=== PATIENT | female | born 1980 | race Caucasian/White ===

== ENCOUNTER 2017-01-23 15:13 | Outpatient (CLI) | payer BC ==
[~2017-01-23] VITALS: Ht 167.6 cm; Wt 61.5 kg
[~2017-01-23 15:13] MED LIST: ACHYD1T PO; BIRTH CONTROL PILL PO; BSP5T PO; CETI10CA PO; CHOL10003 PO; CLC500CT PO; DCS100C PO; HYDR1TAB PO; HYDR25CA5 PO; IBP800T PO; METR500T PO; MULT-974 PO; NITR100C PO; OMEP20CA12 PO; OMEP20CA6 PO; ONDA8TAB6 PO; PANT20TA2 PO; PREN1TAB39 PO; PROC25SU2 PR; PROLSEC; PROM25SU10 RC; SERT100T8 PO; SERT50TA PO; [UNRECOGNIZED DRUG - OTHER] PO
[2017-01-23] MEDS ORDERED: SERT50TA9 PO ×2 (15:48)
[2017-01-23] MEDS ORDERED: CHOL20002 PO ×2 (15:48)
[2017-01-23] MEDS ORDERED: MULT-35 PO ×2 (15:48)
[2017-01-23] MEDS ORDERED: L.AC1CAP6 PO ×2 (15:48)
[2017-01-23] MEDS ORDERED: CETI10TA17 PO ×2 (15:48)
[2017-01-24] MEDS ORDERED: HYDR-3816 PO ×2 (12:49)
== END 2017-01-23 16:01 ==
LOC: PREOP 15:13
PROVIDERS: ATTEND Surgery
DX: Z01.818 Encounter for other preprocedural examination (principal); C50.919 Malignant neoplasm of unspecified site of unspecified female breast

== ENCOUNTER 2017-01-24 08:56 | Day surgery (SDC) | payer BC, OTHER ==
--- NOTE | 2017-01-23 22:26 | HISTORY AND PHYSICAL ---
DATE OF SERVICE: ATTENDING/PRIMARY CARE PHYSICIAN: Justine Simmons DO HISTORY OF PRESENT ILLNESS: The patient is a 36-year-old female who we have seen before in the past. We had seen her for recurrent gastroesophageal reflux disease in 2013. She did undergo an EGD on 11/20/2013, which showed a reflux esophagitis class B, very small hiatal hernia, mild gastritis which was treated medically. All biopsies were negative for H. pylori as well as negative for Chappell's esophagus. She had also reported a history of multicentric DCIS of the right breast and underwent bilateral sentinel node biopsies as well as bilateral mastectomy and reconstruction in 2011 and 2012. She has been following her team of physicians at [facility] and she reports noticing a palpable lesion along the medial aspect of the right breast which was very small and approximately the size of a pea. An ultrasound was performed in 06/2016. The lesion persisted and a biopsy was performed in 10/2016, which did show component of invasive ductal carcinoma. She then underwent workup which included lab work as well as a CT scan of the head, neck, abdomen and pelvis, which were normal. She then underwent a wide excision of the lesion, lumpectomy as well as sentinel node x6 to the right axilla, which were all negative for malignancy. She has been seen by her oncologist with the recommendation to proceed with chemotherapy with Taxol and cyclophosphamide for 12 weeks as well as 10 years of antiestrogen therapy with tamoxifen. She will need a Groshong implantable catheter. 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 BRCA negative. Anxiety, gastroesophageal reflux disease. PAST SURGICAL HISTORY: Tonsillectomy in 1997, right ganglion cyst excision in 1998 and 2001, bilateral mastectomy in 2011, breast reconstruction in 2012, right breast lumpectomy and sentinel biopsy in 11/2016. ALLERGIES: DEMEROL, LATEX, COMPAZINE. MEDICATIONS: Zoloft 50 mg daily, omeprazole 20 mg daily, Loestrin daily, Claritin daily. SOCIAL HISTORY: Negative smoke. Rare alcohol. FAMILY HISTORY: Paternal grandmother breast cancer, father esophageal cancer. Paternal grandfather myocardial infarction at age 55. VITAL SIGNS: Blood pressure 100/60, current weight 138.1 pounds, 5 feet 6 inches. REVIEW OF SYSTEMS: Well-nourished female, currently in no acute distress. She is not experiencing any shortness of breath or difficulty breathing. No chest pain, palpitations, diaphoresis. No nausea, vomiting, no diarrhea, constipation. No fever, chills. No recent inadvertent weight loss. All other review of systems negative. PHYSICAL EXAMINATION: CHEST: Clear. Good breath sounds bilaterally. HEART: Regular, no murmurs. EXTREMITIES: No lower extremity edema. Negative Homans' sign. HEENT: No scleral icterus. NECK: No cervical lymphadenopathy. ABDOMEN: Soft, nontender, nondistended. SKIN: Warm and dry. 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 She was found to have a lesion of the right breast, which was biopsied and consistent with an invasive ductal breast cancer. She is now status post wide lumpectomy and sentinel node biopsy x6 in the right axilla, which were all negative. She has been seen by her oncologist for the recommendation to proceed with a total of 12 weeks of chemotherapy at 3-week intervals with Taxol and cyclophosphamide and will need Groshong implantable catheter, which we will proceed with. Job ID: [id number] DocumentID: [id number] Dictated Date: 01/23/2017 16:27:13 Traffic Operator Date: 01/23/2017 18:45:11 Dictated By: FAIZA LOW MD
[~2017-01-24] VITALS: Ht 167.6 cm; Wt 61.5 kg
[~2017-01-24 08:56] MED LIST changes: +CETI10TA17 PO; +CHOL20002 PO; +L.AC1CAP6 PO; +MULT-35 PO; +SERT50TA9 PO
[2017-01-24] MEDS ORDERED: ceFAZolin 1 GM/NS 50 ML IVPB IV ONE ×2 (09:30)
[2017-01-24 09:47] VITALS: BP 148/83
--- NOTE | 2017-01-24 10:12 | Progress Note-Pre Operative ---
Pre-Operative Progress Note H&P Reviewed The H&P was reviewed, patient examined and no changes noted. Date Seen by Provider: Jan 24, 2017 Time Seen by Provider: 10:00 Date H&P Reviewed: Jan 24, 2017 Time H&P Reviewed: 10:00 Pre-Operative Diagnosis: right breast cancer FAIZA LOW MD Jan 24, 2017 10:12 am
[2017-01-24] MEDS ORDERED: NS (IVPB) 50 ML ONE (10:25)
[2017-01-24] MEDS ORDERED: ceFAZolin 1,000 MG (ANCEF) VIAL ONE (10:25)
[2017-01-24] MEDS ORDERED: MIDAZOLAM 10 MG/2 ML (VERSED) VIAL ONE (10:27)
[2017-01-24] MEDS ORDERED: ONDANSETRON 4 MG/2 ML (SDV) Z0FRAN ONE (10:27)
[2017-01-24] MEDS ORDERED: fentaNYL INJECTION 100 MCG/2 ML AMP ONE (10:28)
[2017-01-24] MEDS ORDERED: LACTATED RINGERS 1,000 ML IV PRN (10:33)
[2017-01-24] MEDS ORDERED: BUP/EPI 0.5% 1:200,000 (MARCAINE) 10ML VIAL IJ ONE (10:33)
[2017-01-24] MEDS ORDERED: 0.9% SODIUM CHLORIDE PF INJ 20 ML VIAL ONE (10:34)
[2017-01-24] MEDS ORDERED: HEParin (CENTRAL IV FLUSH) 500 UNIT/5 ML SYR ONE (10:34)
[2017-01-24] MEDS ORDERED: FAMOTIDINE 20MG/2ML IV (PEPCID) IV ONE (10:45)
[2017-01-24] MEDS ORDERED: LIDOCAINE/EPI 1%-1:200,000 (XYLOCAINE) 10 ML VIAL ONE (10:47)
[2017-01-24] MEDS ORDERED: proPOfol 200 MG/20 ML (DIPRIVAN) VIAL IV ONE (11:57)
[2017-01-24] MEDS ORDERED: ONDANSETRON 4 MG/2 ML (SDV) Z0FRAN IVP PRN ×2 (12:30→12:45)
[2017-01-24] MEDS ORDERED: morphine INJ 10 MG/ML 1ML (SYR OR VIAL) IVP PRN ×2 (12:30→12:45)
[2017-01-24] MEDS ORDERED: PROPOFOL INJECTION 50 ML IV ONE (12:33)
--- NOTE | 2017-01-24 12:44 | Progress Note-Post Operative ---
Post-Operative Progess Note Surgeon (s)/Senior [employer] Dba (s) Surgeon FAIZA LOW MD Senior [employer] Dba: ramin kimble [employer] Pre-Operative Diagnosis right breast cancer Post-Operative Diagnosis same Procedure & Operative Findings Date of Procedure 01/24/17 Procedure Performed/Findings left subclavian groshong implantable catheter placement under flouroscopy. Anesthesia Type MAC with local Estimated Blood Loss Estimated blood loss (mL): minimal Specimens/Packing Specimens Removed none FAIZA LOW MD Jan 24, 2017 12:44 pm
[2017-01-24] MEDS ORDERED: HYDROcodone/APAP 5 MG/325 MG (LORTAB) TAB PO NR (12:45)
[2017-01-24] MEDS ORDERED: ACETAMINOPHEN 325 MG TABLET/CAPLET (TYLENOL) PO PRN (12:45)
[2017-01-24] MEDS ORDERED: HYDR-3816 PO ×2 (12:49)
--- NOTE | 2017-01-24 12:50 | Discharge Inst-Surgical ---
D/C Lap Instructions-DEVANTE New, Converted, or Re-Newed RX: RX on Chart Follow Up PRN Activity as tolerated Regular Diet Symptoms to Report: Fever over 101 degree F, Nausea/Vomiting Infection Signs and Symptoms to report: Increased redness, Foul odor of wound, Increased drainage Bathing instructions: May shower Operative Area Clean/Dry; Keep incision clean/dry If any problems/questions: Contact your physician or go to Emergency Room FAIZA LOW MD Jan 24, 2017 12:50 pm
[2017-01-24 13:25] VITALS: BP 143/95
--- NOTE | 2017-01-24 13:42 | Diagnostic Imaging Report ---
Portable upright radiograph of the chest. INDICATION: Port placement. FINDINGS: Left subclavian port is placed with the tip at the distal SVC level. The lungs appear clear. The heart size is normal. No effusion or pneumothorax. The mediastinum and gibson appear unremarkable. Bilateral surgical clips in the breasts are seen. IMPRESSION: Left subclavian port is placed with the tip at the distal SVC level. Dictated by: Dictated on workstation # [id number]
[2017-01-24 13:55] VITALS: BP 141/96
[2017-01-24 14:15] VITALS: BP 141/96
--- NOTE | 2017-01-24 16:25 | OPERATIVE REPORT ---
DATE OF SERVICE: 01/24/2017 ATTENDING PRIMARY PHYSICIAN: Dr. Justine Simmons. PREOPERATIVE DIAGNOSIS: Right breast cancer. POSTOPERATIVE DIAGNOSIS: Right breast cancer. PROCEDURE: Placement of left subclavian Groshong implantable catheter under fluoroscopy. SURGEON: Dr. Low. ANESTHESIA: Monitored anesthesia care with local. ESTIMATED BLOOD LOSS: Minimal. FINDINGS: Catheter tip at superior vena cava - right atrial junction. DISPOSITION: The patient tolerated the procedure well. The patient is a 36-year-old female who we have seen before in the past. She has had a history of gastroesophageal reflux disease since 2013. She underwent an EGD on 11/14/2013 which showed a reflux esophagitis class B, small hiatal hernia as well as mild gastritis treated medically. Biopsies were negative for H. pylori as well as negative for Chappell's esophagus. She reported a history of multicentric DCIS of the right breast and underwent bilateral sentinel node biopsies as well as bilateral mastectomy and reconstruction in 2011 and 2012. She has been following her team of physicians at [facility] and she reports noticing a palpable lesion along the medial aspect of the right breast, which is very small and approximately the size of a pea. An ultrasound was performed on 07/11/2016. The lesion persisted and a biopsy was performed 11/11/2016, which did show component of invasive ductal carcinoma. She then underwent workup, which included lab work as well as a CT scan of the head, neck, abdomen and pelvis which were normal. She underwent wide excision of the lesion lumpectomy as well as sentinel node x6 to the right axilla, which were all negative for malignancy. She was seen by her oncologist for the recommendation to proceed with chemotherapy with Taxol and cyclophosphamide for 12 weeks as well as antiestrogen therapy for 10 years with tamoxifen. She will need Groshong implantable catheter. DESCRIPTION OF PROCEDURE: The patient was brought to the operating room, laid supine on the table. After adequate IV pain and sedative medications and monitoring anesthesia care, the chest and neck were prepped and draped in standard surgical fashion. 1% lidocaine with epinephrine was then used to anesthetize the overlying skin in the left subclavian region. The left subclavian vein was then cannulated with drawing of venous blood. Guidewire was then inserted under fluoroscopy. The cannulating needle removed and a skin incision made using a 15 blade. The dilator and sheath were then placed and the guidewire and dilator were removed. The Groshong implantable catheter was placed until the catheter tip that was at the right atrial - superior vena cava junction. The sheath was then removed. The inner wire within the catheter was then removed and the catheter cut down to size and the port was placed onto the catheter. The skin incision was then extended laterally and a subcutaneous reservoir between the subcutaneous fat and the anterior pectoralis fascia was created using electrocautery as well as blunt dissection with visualization of good hemostasis. The port was then placed into this reservoir and sutured to the pectoralis fascia using interrupted 3-0 Vicryl sutures. The subcutaneous tissue was then reapproximated using 3-0 Vicryl interrupted sutures. Skin was closed using 4-0 Monocryl running subcuticular suture. The wound was then cleaned and covered with Dermabond. The patient tolerated the procedure well. We will get a post-procedure chest x-ray and once placement was confirmed, the port may be accessed and used at any time. Job ID: [id number] DocumentID: [id number] Dictated Date: 01/24/2017 12:55:37 Warehouse Unloader Date: 01/24/2017 16:24:49 Dictated By: FAIZA LOW MD MTDrPasanna
--- NOTE | 2017-01-24 18:49 | Diagnostic Imaging Report ---
INDICATION: Groshong catheter placement. EXAMINATION: Single fluoroscopic view was obtained. FINDINGS: Groshong catheter with tip overlying the low SVC. The study is otherwise limited. 4 seconds of fluoroscopy time was used in surgery. IMPRESSION: Intraoperative view demonstrates Groshong catheter placement, as above. Dictated by: Dictated on workstation # [id number]
== END 2017-01-24 14:15 | disposition home or self-care (01) ==
LOC: SDC 08:56
PROVIDERS: ATTEND Surgery
DX: C50.911 Malignant neoplasm of unspecified site of right female breast (principal); K21.9 Gastro-esophageal reflux disease without esophagitis; F41.9 Anxiety disorder, unspecified; Z79.899 Other long term (current) drug therapy; Z80.3 Family history of malignant neoplasm of breast
CPT/HCPCS: 71010; 84703; 87081

== ENCOUNTER → 2017-02-08 | Outpatient (CLI) | payer OTHER ==
[~2017-02-08] MED LIST changes: +HYDR-3816 PO; +IOHEXOL 350 MG/ML 100 ML (OMNIPAQUE 350) VIAL IV ONE; +NS 100 ML (IVPB) BAG IV ONE
--- NOTE | 2017-02-08 11:37 | Diagnostic Imaging Report ---
PROCEDURE: CT head with contrast. TECHNIQUE: Multiple contiguous axial images were obtained through the brain after the administration of intravenous contrast. INDICATION: Headache. History of breast cancer 80 mL of Omnipaque 350 is administered intravenously. FINDINGS: There is no enhancing mass seen to suggest metastatic disease. The brain parenchyma has normal mccarthy-white matter differentiation. No hydrocephalus. No extra-axial fluid collections seen. The calvarium, the paranasal sinuses and orbits visualized portions appear unremarkable. IMPRESSION: No evidence of metastasis. Dictated by: Dictated on workstation # [id number]
== END ==
LOC: RAD 10:32
PROVIDERS: ATTEND Internal Medicine Hematology & Oncology
DX: R51 Headache (principal); H53.9 Unspecified visual disturbance; C50.919 Malignant neoplasm of unspecified site of unspecified female breast
CPT/HCPCS: 70460

== ENCOUNTER → 2017-04-30 | Outpatient (RCR) | payer BC, OTHER ==
[2017-02-01 09:39] LABS: BASOPHILS % (AUTO) 0 % (0-10); EOSINOPHILS % (AUTO) 0 % (0-10); HEMATOCRIT 37 % (35-52); HEMOGLOBIN 12.8 G/DL (11.5-16.0); LYMPHOCYTES # (AUTO) 1.2 X 10^3 (1.0-4.0); LYMPHOCYTES % (AUTO) 7 % (12-44); MEAN CORPUSCULAR HEMOGLOBIN 29 PG (25-34); MEAN CORPUSCULAR HGB CONC 34 G/DL (32-36); MEAN CORPUSCULAR VOLUME 86 FL (80-99); MEAN PLATELET VOLUME 12.2 FL (7.4-10.4); MONOCYTES # (AUTO) 1.2 X 10^3 (0.0-1.0); MONOCYTES % (AUTO) 7 % (0-12); NEUTROPHILS # (AUTO) 15.8 X 10^3 (1.8-7.8); NEUTROPHILS % (AUTO) 87 % (42-75); PLATELET COUNT 252 10^3/uL (130-400); RED BLOOD COUNT 4.35 10^6/uL (4.35-5.85); RED CELL DISTRIBUTION WIDTH 12.6 % (10.0-14.5); WHITE BLOOD COUNT 18.2 10^3/uL (4.3-11.0)
[2017-02-01 09:56] LABS: ALANINE AMINOTRANSFERASE 21 U/L (0-55); ALBUMIN 4.3 GM/DL (3.2-4.5); ALKALINE PHOSPHATASE 75 U/L (40-136); BILIRUBIN,TOTAL 0.3 MG/DL (0.1-1.0); BUN/CREATININE RATIO 22; CALCIUM 9.4 MG/DL (8.5-10.1); CARBON DIOXIDE 23 MMOL/L (21-32); CHLORIDE 106 MMOL/L (98-107); CREATININE SERUM 0.58 MG/DL (0.60-1.30); GFR ESTIMATED > 60; GLUCOSE 103 MG/DL (70-105); POTASSIUM 3.7 MMOL/L (3.6-5.0); SODIUM 139 MMOL/L (135-145)
[2017-02-08 09:32] LABS: HEMATOCRIT 41 % (35-52); HEMOGLOBIN 13.4 G/DL (11.5-16.0); MEAN CORPUSCULAR HEMOGLOBIN 29 PG (25-34); MEAN CORPUSCULAR HGB CONC 33 G/DL (32-36); MEAN CORPUSCULAR VOLUME 88 FL (80-99); PLATELET COUNT 204 10^3/uL (130-400); RED BLOOD COUNT 4.62 10^6/uL (4.35-5.85); RED CELL DISTRIBUTION WIDTH 12.9 % (10.0-14.5)
[2017-02-08 09:45] LABS: BUN/CREATININE RATIO 7; CALCIUM 9.5 MG/DL (8.5-10.1); CARBON DIOXIDE 28 MMOL/L (21-32); CHLORIDE 102 MMOL/L (98-107); CREATININE SERUM 0.68 MG/DL (0.60-1.30); GFR ESTIMATED > 60; GLUCOSE 125 MG/DL (70-105); POTASSIUM 3.6 MMOL/L (3.6-5.0); SODIUM 138 MMOL/L (135-145)
[2017-02-08 10:12] LABS: WHITE BLOOD COUNT 30.1 10^3/uL (4.3-11.0)
[2017-02-08 10:13] LABS: SMEAR SCAN COMMENT YES
[2017-02-14 16:06] LABS: BASOPHILS # (AUTO) 0.1 10^3/uL (0.0-0.1); BASOPHILS % (AUTO) 0 % (0-10); EOSINOPHILS % (AUTO) 0 % (0-10); HEMATOCRIT 39 % (35-52); LYMPHOCYTES # (AUTO) 2.7 X 10^3 (1.0-4.0); LYMPHOCYTES % (AUTO) 21 % (12-44); MEAN CORPUSCULAR HEMOGLOBIN 29 PG (25-34); MEAN CORPUSCULAR HGB CONC 33 G/DL (32-36); MEAN CORPUSCULAR VOLUME 87 FL (80-99); MEAN PLATELET VOLUME 11.5 FL (7.4-10.4); MONOCYTES # (AUTO) 0.4 X 10^3 (0.0-1.0); MONOCYTES % (AUTO) 3 % (0-12); NEUTROPHILS # (AUTO) 9.6 X 10^3 (1.8-7.8); NEUTROPHILS % (AUTO) 75 % (42-75); PLATELET COUNT 162 10^3/uL (130-400); RED BLOOD COUNT 4.47 10^6/uL (4.35-5.85); RED CELL DISTRIBUTION WIDTH 13.2 % (10.0-14.5); WHITE BLOOD COUNT 12.7 10^3/uL (4.3-11.0)
[2017-02-14 16:24] LABS: BUN/CREATININE RATIO 24; CALCIUM 9.5 MG/DL (8.5-10.1); CARBON DIOXIDE 25 MMOL/L (21-32); CHLORIDE 106 MMOL/L (98-107); CREATININE SERUM 0.66 MG/DL (0.60-1.30); GFR ESTIMATED > 60; GLUCOSE 83 MG/DL (70-105); POTASSIUM 3.9 MMOL/L (3.6-5.0); SODIUM 141 MMOL/L (135-145)
[2017-02-22 08:46] LABS: BASOPHILS % (AUTO) 0 % (0-10); EOSINOPHILS % (AUTO) 0 % (0-10); HEMATOCRIT 36 % (35-52); LYMPHOCYTES # (AUTO) 0.7 X 10^3 (1.0-4.0); LYMPHOCYTES % (AUTO) 5 % (12-44); MEAN CORPUSCULAR HEMOGLOBIN 29 PG (25-34); MEAN CORPUSCULAR HGB CONC 33 G/DL (32-36); MEAN CORPUSCULAR VOLUME 88 FL (80-99); MEAN PLATELET VOLUME 11.3 FL (7.4-10.4); MONOCYTES # (AUTO) 0.5 X 10^3 (0.0-1.0); MONOCYTES % (AUTO) 3 % (0-12); NEUTROPHILS # (AUTO) 14.3 X 10^3 (1.8-7.8); NEUTROPHILS % (AUTO) 92 % (42-75); PLATELET COUNT 336 10^3/uL (130-400); RED BLOOD COUNT 4.09 10^6/uL (4.35-5.85); RED CELL DISTRIBUTION WIDTH 13.9 % (10.0-14.5); WHITE BLOOD COUNT 15.5 10^3/uL (4.3-11.0)
[2017-02-22 09:04] LABS: ALANINE AMINOTRANSFERASE 42 U/L (0-55); ALBUMIN 4.4 GM/DL (3.2-4.5); ALKALINE PHOSPHATASE 77 U/L (40-136); BILIRUBIN,TOTAL 0.3 MG/DL (0.1-1.0); BUN/CREATININE RATIO 16; CALCIUM 9.6 MG/DL (8.5-10.1); CARBON DIOXIDE 23 MMOL/L (21-32); CHLORIDE 107 MMOL/L (98-107); CREATININE SERUM 0.67 MG/DL (0.60-1.30); GFR ESTIMATED > 60; GLUCOSE 121 MG/DL (70-105); POTASSIUM 3.8 MMOL/L (3.6-5.0); SODIUM 141 MMOL/L (135-145); TOTAL PROTEIN 6.9 GM/DL (6.4-8.2)
[2017-03-01 10:04] LABS: BASOPHILS % (AUTO) 3 % (0-10); EOSINOPHILS % (AUTO) 2 % (0-10); HEMATOCRIT 33 % (35-52); LYMPHOCYTES # (AUTO) 0.9 X 10^3 (1.0-4.0); LYMPHOCYTES % (AUTO) 62 % (12-44); MEAN CORPUSCULAR HEMOGLOBIN 29 PG (25-34); MEAN CORPUSCULAR HGB CONC 37 G/DL (32-36); MEAN CORPUSCULAR VOLUME 79 FL (80-99); MEAN PLATELET VOLUME 11.2 FL (7.4-10.4); MONOCYTES % (AUTO) 2 % (0-12); NEUTROPHILS # (AUTO) 0.4 X 10^3 (1.8-7.8); NEUTROPHILS % (AUTO) 31 % (42-75); PLATELET COUNT 226 10^3/uL (130-400); RED BLOOD COUNT 4.12 10^6/uL (4.35-5.85)
[2017-03-01 10:05] LABS: WHITE BLOOD COUNT 1.4 10^3/uL (4.3-11.0)
[2017-03-01 10:29] LABS: BUN/CREATININE RATIO 12; CALCIUM 9.1 MG/DL (8.5-10.1); CARBON DIOXIDE 25 MMOL/L (21-32); CHLORIDE 104 MMOL/L (98-107); GFR ESTIMATED > 60; GLUCOSE 80 MG/DL (70-105); POTASSIUM 3.7 MMOL/L (3.6-5.0); SODIUM 140 MMOL/L (135-145)
[2017-03-02] MEDS: TBO FILGRASTIM SQ SCH (09:47)
[2017-03-02 10:09] VITALS: BP 115/85
[2017-03-03] MEDS: TBO FILGRASTIM SQ SCH (09:37)
[2017-03-03 09:40] VITALS: BP 109/71
[2017-03-07 08:41] LABS: HEMATOCRIT 34 % (35-52); HEMOGLOBIN 11.1 G/DL (11.5-16.0); MEAN CORPUSCULAR HEMOGLOBIN 30 PG (25-34); MEAN CORPUSCULAR HGB CONC 33 G/DL (32-36); MEAN CORPUSCULAR VOLUME 91 FL (80-99); MEAN PLATELET VOLUME 10.1 FL (7.4-10.4); PLATELET COUNT 228 10^3/uL (130-400); RED CELL DISTRIBUTION WIDTH 14.9 % (10.0-14.5)
[2017-03-15 08:45] LABS: BASOPHILS % (AUTO) 0 % (0-10); EOSINOPHILS % (AUTO) 0 % (0-10); HEMATOCRIT 33 % (35-52); HEMOGLOBIN 11.2 G/DL (11.5-16.0); LYMPHOCYTES # (AUTO) 0.7 X 10^3 (1.0-4.0); LYMPHOCYTES % (AUTO) 8 % (12-44); MEAN CORPUSCULAR HEMOGLOBIN 29 PG (25-34); MEAN CORPUSCULAR HGB CONC 34 G/DL (32-36); MEAN CORPUSCULAR VOLUME 87 FL (80-99); MEAN PLATELET VOLUME 12.5 FL (7.4-10.4); MONOCYTES # (AUTO) 0.2 X 10^3 (0.0-1.0); MONOCYTES % (AUTO) 3 % (0-12); NEUTROPHILS # (AUTO) 7.6 X 10^3 (1.8-7.8); NEUTROPHILS % (AUTO) 89 % (42-75); PLATELET COUNT 139 10^3/uL (130-400); RED BLOOD COUNT 3.83 10^6/uL (4.35-5.85); RED CELL DISTRIBUTION WIDTH 13.9 % (10.0-14.5); WHITE BLOOD COUNT 8.5 10^3/uL (4.3-11.0)
[2017-03-15 09:02] LABS: ALANINE AMINOTRANSFERASE 63 U/L (0-55); ALBUMIN 4.3 GM/DL (3.2-4.5); ALKALINE PHOSPHATASE 81 U/L (40-136); BILIRUBIN,TOTAL 0.3 MG/DL (0.1-1.0); BUN/CREATININE RATIO 19; CALCIUM 9.5 MG/DL (8.5-10.1); CARBON DIOXIDE 22 MMOL/L (21-32); CHLORIDE 109 MMOL/L (98-107); CREATININE SERUM 0.62 MG/DL (0.60-1.30); GFR ESTIMATED > 60; GLUCOSE 105 MG/DL (70-105); POTASSIUM 3.8 MMOL/L (3.6-5.0); SODIUM 142 MMOL/L (135-145); TOTAL PROTEIN 6.7 GM/DL (6.4-8.2)
[2017-03-22 08:30] LABS: BASOPHILS # (AUTO) 0.2 10^3/uL (0.0-0.1); BASOPHILS % (AUTO) 2 % (0-10); EOSINOPHILS # (AUTO) 0.1 10^3/uL (0.0-0.3); EOSINOPHILS % (AUTO) 1 % (0-10); HEMATOCRIT 36 % (35-52); HEMOGLOBIN 11.9 G/DL (11.5-16.0); LYMPHOCYTES # (AUTO) 2.2 X 10^3 (1.0-4.0); LYMPHOCYTES % (AUTO) 21 % (12-44); MEAN CORPUSCULAR HEMOGLOBIN 30 PG (25-34); MEAN CORPUSCULAR HGB CONC 33 G/DL (32-36); MEAN CORPUSCULAR VOLUME 89 FL (80-99); MEAN PLATELET VOLUME 11.4 FL (7.4-10.4); MONOCYTES # (AUTO) 1.8 X 10^3 (0.0-1.0); MONOCYTES % (AUTO) 18 % (0-12); NEUTROPHILS % (AUTO) 59 % (42-75); PLATELET COUNT 233 10^3/uL (130-400); RED BLOOD COUNT 3.98 10^6/uL (4.35-5.85); RED CELL DISTRIBUTION WIDTH 14.7 % (10.0-14.5); WHITE BLOOD COUNT 10.3 10^3/uL (4.3-11.0)
[2017-03-22 08:46] LABS: BUN/CREATININE RATIO 11; CALCIUM 9.6 MG/DL (8.5-10.1); CARBON DIOXIDE 25 MMOL/L (21-32); CHLORIDE 104 MMOL/L (98-107); CREATININE SERUM 0.61 MG/DL (0.60-1.30); GFR ESTIMATED > 60; GLUCOSE 86 MG/DL (70-105); POTASSIUM 3.5 MMOL/L (3.6-5.0); SODIUM 141 MMOL/L (135-145)
[2017-03-29 08:36] LABS: BASOPHILS % (AUTO) 1 % (0-10); EOSINOPHILS # (AUTO) 0.1 10^3/uL (0.0-0.3); EOSINOPHILS % (AUTO) 1 % (0-10); HEMATOCRIT 36 % (35-52); HEMOGLOBIN 11.8 G/DL (11.5-16.0); LYMPHOCYTES % (AUTO) 26 % (12-44); MEAN CORPUSCULAR HEMOGLOBIN 30 PG (25-34); MEAN CORPUSCULAR HGB CONC 33 G/DL (32-36); MEAN CORPUSCULAR VOLUME 90 FL (80-99); MEAN PLATELET VOLUME 10.5 FL (7.4-10.4); MONOCYTES # (AUTO) 0.3 X 10^3 (0.0-1.0); MONOCYTES % (AUTO) 4 % (0-12); NEUTROPHILS # (AUTO) 5.2 X 10^3 (1.8-7.8); NEUTROPHILS % (AUTO) 69 % (42-75); PLATELET COUNT 202 10^3/uL (130-400); RED BLOOD COUNT 3.97 10^6/uL (4.35-5.85); RED CELL DISTRIBUTION WIDTH 15.1 % (10.0-14.5); WHITE BLOOD COUNT 7.6 10^3/uL (4.3-11.0)
[2017-03-29 08:56] LABS: BUN/CREATININE RATIO 15; CALCIUM 9.3 MG/DL (8.5-10.1); CARBON DIOXIDE 26 MMOL/L (21-32); CHLORIDE 103 MMOL/L (98-107); CREATININE SERUM 0.65 MG/DL (0.60-1.30); GFR ESTIMATED > 60; GLUCOSE 81 MG/DL (70-105); POTASSIUM 3.6 MMOL/L (3.6-5.0); SODIUM 142 MMOL/L (135-145)
[2017-04-05 08:48] LABS: BASOPHILS % (AUTO) 0 % (0-10); EOSINOPHILS % (AUTO) 0 % (0-10); HEMATOCRIT 34 % (35-52); HEMOGLOBIN 11.4 G/DL (11.5-16.0); LYMPHOCYTES # (AUTO) 0.6 X 10^3 (1.0-4.0); LYMPHOCYTES % (AUTO) 5 % (12-44); MEAN CORPUSCULAR HEMOGLOBIN 31 PG (25-34); MEAN CORPUSCULAR HGB CONC 34 G/DL (32-36); MEAN CORPUSCULAR VOLUME 90 FL (80-99); MEAN PLATELET VOLUME 11.1 FL (7.4-10.4); MONOCYTES # (AUTO) 0.3 X 10^3 (0.0-1.0); MONOCYTES % (AUTO) 3 % (0-12); NEUTROPHILS # (AUTO) 10.4 X 10^3 (1.8-7.8); NEUTROPHILS % (AUTO) 92 % (42-75); PLATELET COUNT 266 10^3/uL (130-400); RED BLOOD COUNT 3.74 10^6/uL (4.35-5.85); RED CELL DISTRIBUTION WIDTH 16.1 % (10.0-14.5); WHITE BLOOD COUNT 11.3 10^3/uL (4.3-11.0)
[2017-04-05 09:06] LABS: ALANINE AMINOTRANSFERASE 33 U/L (0-55); ALBUMIN 4.3 GM/DL (3.2-4.5); ALKALINE PHOSPHATASE 71 U/L (40-136); BILIRUBIN,TOTAL 0.3 MG/DL (0.1-1.0); BUN/CREATININE RATIO 17; CALCIUM 9.5 MG/DL (8.5-10.1); CARBON DIOXIDE 23 MMOL/L (21-32); CHLORIDE 107 MMOL/L (98-107); CREATININE SERUM 0.66 MG/DL (0.60-1.30); GFR ESTIMATED > 60; GLUCOSE 131 MG/DL (70-105); POTASSIUM 3.8 MMOL/L (3.6-5.0); SODIUM 142 MMOL/L (135-145); TOTAL PROTEIN 6.8 GM/DL (6.4-8.2)
[2017-04-12 08:40] LABS: BASOPHILS # (AUTO) 0.1 10^3/uL (0.0-0.1); BASOPHILS % (AUTO) 1 % (0-10); EOSINOPHILS # (AUTO) 0.1 10^3/uL (0.0-0.3); EOSINOPHILS % (AUTO) 1 % (0-10); HEMATOCRIT 38 % (35-52); HEMOGLOBIN 12.4 G/DL (11.5-16.0); LYMPHOCYTES # (AUTO) 1.8 X 10^3 (1.0-4.0); LYMPHOCYTES % (AUTO) 15 % (12-44); MEAN CORPUSCULAR HEMOGLOBIN 30 PG (25-34); MEAN CORPUSCULAR HGB CONC 33 G/DL (32-36); MEAN CORPUSCULAR VOLUME 92 FL (80-99); MEAN PLATELET VOLUME 11.5 FL (7.4-10.4); MONOCYTES # (AUTO) 0.9 X 10^3 (0.0-1.0); MONOCYTES % (AUTO) 7 % (0-12); NEUTROPHILS # (AUTO) 8.8 X 10^3 (1.8-7.8); NEUTROPHILS % (AUTO) 75 % (42-75); PLATELET COUNT 190 10^3/uL (130-400); RED CELL DISTRIBUTION WIDTH 15.7 % (10.0-14.5); WHITE BLOOD COUNT 11.7 10^3/uL (4.3-11.0)
[2017-04-12 09:04] LABS: BUN/CREATININE RATIO 12; CALCIUM 9.6 MG/DL (8.5-10.1); CARBON DIOXIDE 24 MMOL/L (21-32); CHLORIDE 104 MMOL/L (98-107); CREATININE SERUM 0.67 MG/DL (0.60-1.30); GFR ESTIMATED > 60; GLUCOSE 92 MG/DL (70-105); POTASSIUM 3.5 MMOL/L (3.6-5.0); SODIUM 139 MMOL/L (135-145)
[2017-04-19 13:15] LABS: BASOPHILS % (AUTO) 0 % (0-10); EOSINOPHILS # (AUTO) 0.1 10^3/uL (0.0-0.3); EOSINOPHILS % (AUTO) 0 % (0-10); HEMATOCRIT 35 % (35-52); HEMOGLOBIN 11.3 G/DL (11.5-16.0); LYMPHOCYTES # (AUTO) 1.5 X 10^3 (1.0-4.0); LYMPHOCYTES % (AUTO) 13 % (12-44); MEAN CORPUSCULAR HEMOGLOBIN 30 PG (25-34); MEAN CORPUSCULAR HGB CONC 33 G/DL (32-36); MEAN CORPUSCULAR VOLUME 92 FL (80-99); MONOCYTES # (AUTO) 0.4 X 10^3 (0.0-1.0); MONOCYTES % (AUTO) 3 % (0-12); NEUTROPHILS # (AUTO) 9.8 X 10^3 (1.8-7.8); NEUTROPHILS % (AUTO) 84 % (42-75); PLATELET COUNT 163 10^3/uL (130-400); RED BLOOD COUNT 3.76 10^6/uL (4.35-5.85); RED CELL DISTRIBUTION WIDTH 15.8 % (10.0-14.5); WHITE BLOOD COUNT 11.8 10^3/uL (4.3-11.0)
[2017-04-19 13:33] LABS: BUN/CREATININE RATIO 14; CARBON DIOXIDE 27 MMOL/L (21-32); CHLORIDE 107 MMOL/L (98-107); CREATININE SERUM 0.83 MG/DL (0.60-1.30); GFR ESTIMATED > 60; GLUCOSE 85 MG/DL (70-105); POTASSIUM 4.1 MMOL/L (3.6-5.0); SODIUM 142 MMOL/L (135-145)
[~2017-04-30] VITALS: Ht 168.9 cm; Wt 62.6 kg
[~2017-04-30] MED LIST changes: +CYCLOPHOSPHAMIDE INJECTION 1,000 MG in NS (IVPB) CANCER CENTER 250 ML IV SCH; +DOCETAXEL IV SCH; +FAMOTIDINE 20MG/2ML IV (CANCER CTR) IV SCH; +FOSAPREPITANT DIMEGLUMINE 150 MG in NS (IVPB) CANCER CENTER ONLY 150 ML IV SCH; +HYDR-34 PO; -HYDR-3816 PO; -IOHEXOL 350 MG/ML 100 ML (OMNIPAQUE 350) VIAL IV ONE; +LORazepam 0.5 MG (ATIVAN) TABLET CANCER CTR ONE; +LORazepam INJ 2 MG/ML VIAL CANCER CTR IV SCH; +NORMAL SALINE IV SCH; -NS 100 ML (IVPB) BAG IV ONE; +NS IV 1000 ML (CANCER CTR) IV SCH; +PALONOSETRON 0.25 MG, DEXAMETHASONE 10 MG/NS 50 ML IVPB IV PRN; +PALONOSETRON HCL 0.25 MG, DEXAMETHASONE PF INJ (CANCER C 10 MG in D5W 50 ML IV(CANCER C... IV ONE; +PEGFILGRASTIM 6 MG/0.6 ML ONPRO KIT SQ SCH; +diphenhydrAMINE 25 MG TAB (BENADRYL) CANCER CENTER PO ONE; +diphenhydrAMINE 25 MG TAB (BENADRYL) CANCER CENTER PO SCH; +diphenhydrAMINE 50 MG/ML INJ (CANCER CENTER) IV PRN
== END | disposition home or self-care (01) ==
LOC: ONC 01-30 09:46
PROVIDERS: ATTEND Internal Medicine Hematology & Oncology
DX: Z51.11 Encounter for antineoplastic chemotherapy (principal); C50.211 Malignant neoplasm of upper-inner quadrant of right female breast; D70.1 Agranulocytosis secondary to cancer chemotherapy; T45.1X5A Adverse effect of antineoplastic and immunosuppressive drugs, initial encounter; L50.9 Urticaria, unspecified; F41.9 Anxiety disorder, unspecified; Z90.13 Acquired absence of bilateral breasts and nipples; Z79.899 Other long term (current) drug therapy; Z45.2 Encounter for adjustment and management of vascular access device
CPT/HCPCS: 36415; 36591; 77290; 77334; 80048; 80053; 85025; 96367; 96372; 96375; 96413; 96417; 96523; 99214

== ENCOUNTER 2017-06-28 08:10 | Outpatient (RCR) | payer OTHER ==
[~2017-06-28 08:10] MED LIST changes: -CYCLOPHOSPHAMIDE INJECTION 1,000 MG in NS (IVPB) CANCER CENTER 250 ML IV SCH; -DOCETAXEL IV SCH; -FAMOTIDINE 20MG/2ML IV (CANCER CTR) IV SCH; -FOSAPREPITANT DIMEGLUMINE 150 MG in NS (IVPB) CANCER CENTER ONLY 150 ML IV SCH; -LORazepam 0.5 MG (ATIVAN) TABLET CANCER CTR ONE; -LORazepam INJ 2 MG/ML VIAL CANCER CTR IV SCH; -NORMAL SALINE IV SCH; -NS IV 1000 ML (CANCER CTR) IV SCH; -PALONOSETRON 0.25 MG, DEXAMETHASONE 10 MG/NS 50 ML IVPB IV PRN; -PALONOSETRON HCL 0.25 MG, DEXAMETHASONE PF INJ (CANCER C 10 MG in D5W 50 ML IV(CANCER C... IV ONE; -PEGFILGRASTIM 6 MG/0.6 ML ONPRO KIT SQ SCH; -diphenhydrAMINE 25 MG TAB (BENADRYL) CANCER CENTER PO ONE; -diphenhydrAMINE 25 MG TAB (BENADRYL) CANCER CENTER PO SCH; -diphenhydrAMINE 50 MG/ML INJ (CANCER CENTER) IV PRN
== END 2017-08-01 | disposition home or self-care (01) ==
LOC: ONC 08:10
PROVIDERS: ATTEND Internal Medicine Hematology & Oncology
DX: Z51.0 Encounter for antineoplastic radiation therapy (principal); C50.211 Malignant neoplasm of upper-inner quadrant of right female breast
CPT/HCPCS: 77290; 77295; 77300; 77332; 77334; 77336; 77417; 77470

== ENCOUNTER 2017-08-30 13:57 | Outpatient (RCR) | payer OTHER | END 2017-09-24 | disposition home or self-care (01) | LOC: ONC 13:57 | PROVIDERS: ATTEND Internal Medicine Hematology & Oncology | DX: C50.211 Malignant neoplasm of upper-inner quadrant of right female breast (principal) | CPT/HCPCS: 99213 ==

== ENCOUNTER → 2018-06-10 | Outpatient (CLI) | payer OTHER | LOC: LAB FS 11:39 | PROVIDERS: ATTEND Family Medicine | DX: E87.6 Hypokalemia (principal) | CPT/HCPCS: 36415; 84132 ==

== ENCOUNTER 2019-03-02 08:04 | Outpatient (RCR) | payer OTHER | END 2019-03-02 08:38 | disposition home or self-care (01) | PROVIDERS: ATTEND Internal Medicine Hematology & Oncology | DX: M25.511 Pain in right shoulder (principal); Z85.3 Personal history of malignant neoplasm of breast; Z85.828 Personal history of other malignant neoplasm of skin; I10 Essential (primary) hypertension ==